=== PATIENT | female | born 1985 | race Hispanic/Latino ===

== ENCOUNTER 2021-12-16 19:03 | Emergency (ER) | payer OTHER, BC ==
[~2021-12-16] VITALS: Ht 160 cm; Wt 63.5 kg
[~2021-12-16 19:03] MED LIST: PNV1TABL17 PO
[2021-12-16] MEDS ORDERED: IBUPROFEN 600 MG TABLET PO ONE (20:00)
[2021-12-16] MEDS ORDERED: TETANUS/DIPHTHERIA TOXOID [ADULT] 0.5 ML VIAL IM ONE ×2 (20:00→20:02)
[2021-12-16] MEDS ORDERED: ACETAMINOPHEN 500 MG TABLET PO ONE (20:00)
[2021-12-16] MEDS ORDERED: ACETAMINOPHEN 500 MG TABLET ONE (20:01)
[2021-12-16] MEDS ORDERED: IBUPROFEN 600 MG TABLET ONE (20:01)
[2021-12-16 20:11] VITALS: BP 126/80
== END 2021-12-16 20:18 | disposition home or self-care (01) ==
LOC: EDH 19:03
DX: S01.01XA Laceration without foreign body of scalp, initial encounter (principal); Y99.8 Other external cause status; Z79.1 Long term (current) use of non-steroidal anti-inflammatories (NSAID); X58.XXXA Exposure to other specified factors, initial encounter; Y93.89 Activity, other specified; Y92.89 Other specified places as the place of occurrence of the external cause
CPT/HCPCS: 12001; 90471; 90714